=== PATIENT | female | born 1960 | race Two or more races ===

== ENCOUNTER 2022-08-17 08:36 | Outpatient (CLI) | payer OTHER | END 2022-08-17 08:45 | disposition home or self-care (01) | LOC: SONOGRAMA 08:36 | PROVIDERS: ATTEND Pathology Anatomic Pathology | DX: D34 Benign neoplasm of thyroid gland (principal); E04.9 Nontoxic goiter, unspecified ==

== ENCOUNTER 2023-03-01 09:43 | Outpatient (CLI) | payer OTHER | END 2023-03-01 10:11 | disposition home or self-care (01) | LOC: RAD 09:43 | DX: M17.0 Bilateral primary osteoarthritis of knee (principal) ==